=== PATIENT | male | born 1960 | race Caucasian/White ===

== ENCOUNTER 2018-05-26 19:40 | Emergency (ER) | payer OTHER, SELFPAY ==
[2018-05-26 19:42] VITALS: BP 170/97; PULSE 84; RESP 18; TEMP 36.7; O2SAT 98; BMI 45.4
--- NOTE | 2018-05-26 20:22 | ED.VISSUMM ---
- ER Visit Summary Date of Service: 05/26/18 Chief Complaint: Left knee injury History of Present Illness: The patient is a 57 M presenting with left knee pain. Patient was at work and he tripped and fell landing directly on his left knee. He did not hit his head or lose consciousness. His tetanus is up-to-date. He has an abrasion to the right lower extremity and pain of the left knee diffusely. Denies other injuries. Physical Examination: Vitals are stable. Patient is afebrile. Alert no acute distress. HEENT exam is unremarkable. Neck is nontender Lungs are clear and equal bilaterally. Heart is regular rate and rhythm. Extremities right lower extremity abrasion, left knee anterior tenderness with painful range of motion. Normal distal pulses. Skin is warm and dry. No focal neurologic deficit. Remainder of exam is unremarkable. Emergency Department Course and Treatment: Right lower extremity abrasion was cleaned and dressed. Left knee x-ray shows no acute fracture or dislocation. Multicompartment degenerative changes. He already has crutches. He is advised to follow-up with corporate care. He is given a short course of [place]. Advised to return to the ED for worsening complaints. Disposition: Discharge home Impression: Left knee contusion This note was generated with [employer] dictation software. It may contain incorrect words, spelling, and punctuation that were not noted in review of the chart prior to signing ED Disposition - Plan for ED Patient: Chief Complaint: Lower Extremity Injury Referrals: NOT,DEFINED [NON-STAFF] -
--- NOTE | 2018-05-26 21:08 | ED.DEP ---
ED Disposition - Plan for ED Patient: Chief Complaint: Lower Extremity Injury Instructions: ED Contusion Lower Ext Prescriptions: Hydrocodone Bitart/Apap 5-325 [[place] 5MG-325MG] 1 tablet PO Q4H PRN PRN 2 Days #10 tablet PRN Reason: Pain Referrals: NOT,DEFINED [NON-STAFF] - [facility] [GROUP OF PHYSICIANS] -
== END 2018-05-26 21:30 | disposition home or self-care (01) ==
LOC: ED 20:42
PROVIDERS: Emergency Provider Emergency Medicine
DX: S80.02XA Contusion of left knee, initial encounter (principal); S80.811A Abrasion, right lower leg, initial encounter; W01.0XXA Fall on same level from slipping, tripping and stumbling without subsequent striking against object, initial encounter; Y93.9 Activity, unspecified; Y92.9 Unspecified place or not applicable; E11.9 Type 2 diabetes mellitus without complications; E78.00 Pure hypercholesterolemia, unspecified; Z79.4 Long term (current) use of insulin; Z79.84 Long term (current) use of oral hypoglycemic drugs; Z79.899 Other long term (current) drug therapy
CPT/HCPCS: 73564; 99283

== ENCOUNTER → 2019-02-23 | Outpatient (CLI) | payer BC, SELFPAY ==
--- NOTE | 2019-02-23 09:56 | CDU_ITS ---
Reason For Study: Carotid Stenosis Rt. Velocities/BP Lt. Velocities/BP Prox CCA 109/13 cm/sec. Prox CCA 120/14 cm/sec. Mid CCA 79/14 cm/sec. Mid CCA 97/19 cm/sec. Dist CCA 75/17 cm/sec. Dist CCA 72/18 cm/sec. Prox ICA 48/9 cm/sec. Prox ICA 61/14 cm/sec. Mid ICA 75/21 cm/sec. Mid ICA 63/16 cm/sec. Dist ICA 97/29 cm/sec. Dist ICA 92/26 cm/sec. Rt. ICA/CCA = 1.2. Lt. ICA/CCA = 1.0. Prox ECA 115/16 cm/sec. Prox ECA 175/23 cm/sec. Rt. Vert. 42/8 cm/sec. Lt. Vert. 44/11 cm/sec. Right Extracranial There is intimal thickening but no significant atherosclerotic plaque noted in the right common carotid artery. There is heterogeneous, irregular atherosclerotic plaque noted in the right internal carotid artery. There is intimal thickening but no significant atherosclerotic plaque noted in the right external carotid artery. Antegrade flow is noted in the right vertebral artery. Left Extracranial There is heterogeneous, irregular atherosclerotic plaque noted in the left common carotid artery. There is heterogeneous, irregular atherosclerotic plaque noted in the left internal carotid artery. There is heterogeneous, irregular atherosclerotic plaque noted in the left external carotid artery. Antegrade flow is noted in the left vertebral artery. Procedure Carotid Duplex [id number]. Exam performed in department. Interpretation Summary Minimal plague at the proximal right internal carotid with <50% stenosis. <50% stenosis right external carotid Irregular calcific plague at the proximal left internal carotid with <50% stenosis. Irregular plague at the proximal left external carotid with <50% stenosis. Patent and antegrade vertebrals bilaterally Ordering Physician: Bhupendra Lake Referring Physician: Dallas Hernandez Performed By: Marilu Middleton, CARLA, RVT
== END | disposition home or self-care (01) ==
LOC: CVS 09:54
PROVIDERS: Referring Provider Ophthalmology; Visit Provider Ophthalmology
DX: I65.29 Occlusion and stenosis of unspecified carotid artery (principal)
CPT/HCPCS: 93880

== ENCOUNTER → 2021-01-16 | Outpatient (CLI) | payer BC, SELFPAY ==
--- NOTE | 2021-01-16 | BON_PTH ---
PATIENT: BIN BELLAMY LOC: [facility] U#:[id number] AGE/SX: 60/M ROOM: RE01/16/[address]: EDWINA StylesM : 1960 BED: DIS: 01/16/2021 SPEC #: [id number] RECD: 01/16/21 17:40 STATUS: MILANA REQ #: [id number] STEVE: 01/16/21 00:[address]: Maricruz Loyola DEPT: SURGICAL PATHOLOGY RECD BY: Bay Galvez ENTERED: 01/17/21 07:45 SP TYPE: Bone OTHR DR: Out of [facility] Doctor Tissues: Bone of foot, NOS Procedures: Decalcification bone/plaque Surgery Specimen Level V HEADER OPERATION: Not noted PRE-OP DIAGNOSIS: Osteomyelitis, ulcer TISSUE SUBMITTED: Bone distal phalanx left hallux, biopsy MICROSCOPIC DIAGNOSIS Left hallux bone, biopsy: Fibrinoid material with acute inflammation and minute fragments of bone. See comment. AM:kathryn 01/18/2021 COMMENT The findings are consistent with acute osteomyelitis. Clinical correlation is suggested. MICROSCOPIC DESCRIPTION Slides are reviewed. GROSS DESCRIPTION Received in fixative is one container labeled with the patient's name and designated left first toe. The specimen consists of two irregular fragments of ortega soft tissue that in aggregate measure 0.5 x 0.2 x 0.1 cm. The specimen is totally submitted in one cassette after light decalcification. / SJ:kathryn 01/17/21 TC:2 CPT: 11576, 40220
[2021-01-16 19:58] LABS: M R Staph aureus DNA By PCR Negative (Negative); Probe Check PASS; Specimen Processing Control PASS; Staph aureus DNA By PCR POSITIVE (Negative)
== END | disposition home or self-care (01) ==
PROVIDERS: Referring Provider Podiatrist Foot & Ankle Surgery; Visit Provider Podiatrist Foot & Ankle Surgery
DX: L03.039 Cellulitis of unspecified toe (principal); L02.619 Cutaneous abscess of unspecified foot
CPT/HCPCS: 87070; 87077; 87186; 87205; 87640; 88304; 88307; 88311

== ENCOUNTER → 2021-02-12 14:55 | Outpatient (CLI) | payer BC, SELFPAY ==
--- NOTE | 2021-02-12 14:57 | ART_ITS ---
Reason For Study: PVD Procedure A bilateral lower extremity continuous wave Doppler with analog waveform analysis,segmental pressures,and ankle brachial indexes without exercise. Left Segmental Pressures Left brachial= 157mmHg. Left posterior tibial artery = >254mmHg. Left dorsalis pedis artery = >254mmHg. Left digit = 114 mmHg. The left dorsalis pedis waveforms are triphasic. The left posterior tibial artery waveforms are triphasic. Right Segmental Pressures Right brachial= 154mmHg. Right posterior tibial artery = >254mmHg. Right dorsalis pedis artery = >254mmHg. Right digit = 137 mmHg. The right dorsalis pedis waveforms are triphasic. The right posterior tibial artery waveforms are triphasic. Indices The right ankle brachial index by the dorsalis pedis is NC. The right ankle brachial index by the posterior tibial artery is NC. The right digital-brachial index is 0.87. The left ankle brachial index by the dorsalis pedis is NC. The left ankle brachial index by the posterior tibial artery is NC. The left digital-brachial index is 0.73. VL/Lower Ext Art Exam w/o Exercis Interpretation Summary Triphasic Doppler waveforms are noted at ankle level bilaterally. Pulse-volume recordings appear satisfactory at all levels bilaterally, including low-thigh, calf, ankle, and d igital levels. Resting ankle-brachial indices could not be determined on either side due to th e non-compressibility of the vasculature at ankle level. Digital-brachial indices are normal bilatera lly. There is evidence of arterial calcification at ankle level bilaterally. There i s no evidence of significant arterial occlusive disease in the lower extremities bilaterally. Ordering Physician: Maricruz Loyola Performed By: Jada Mota RVT
== END ==
PROVIDERS: Referring Provider Podiatrist Foot & Ankle Surgery; Visit Provider Podiatrist Foot & Ankle Surgery
DX: E11.621 Type 2 diabetes mellitus with foot ulcer (principal); L97.524 Non-pressure chronic ulcer of other part of left foot with necrosis of bone; I73.9 Peripheral vascular disease, unspecified; E11.42 Type 2 diabetes mellitus with diabetic polyneuropathy
CPT/HCPCS: 93923

== ENCOUNTER → 2023-04-02 | Outpatient (CLI) | payer BC, SELFPAY ==
--- NOTE | 2023-04-02 08:10 | CR.HP_ITS ---
CR - History & Physical General Arrival date:: 04/02/23 Arrival time:: 08:10 Date of Referral:: 03/09/23 Date of CR Evaluation:: 04/02/23 Referring Physician: Dr. Shalom Pardo History of Present Cardiac Event Onset Date Coronary Artery Bypass Graft:: Yes Vessel: 02/24/2023 lucio-lad, svg-PDA Medications Ambulatory Orders Medication Instructions Recorded hydrocodone-acetaminophen 5-325mg 1 tab PO Q4H PRN PRN Pain 2 days 05/26/18 5mg-325mg #10 TABLETS insulin glargine U-300 conc 300 300 unit SQ BID 05/26/18 unit/mL (1.5 mL) subcutaneous pen (TouESILLAGEo SoloStar U-300 Insulin) metformin 1,000 mg tablet 1,000 mg PO BID 05/26/18 rosuvastatin 20 mg tablet (Crestor) 20 mg PO QHS 05/26/18 cyclobenzaprine 10 mg tablet 10 mg PO TID PRN muscle spasm #30 01/10/21 tabs aspirin 81 mg chewable tablet 2 tab PO DAILY 03/25/23 cholecalciferol (vitamin D3) 125 125 mcg PO DAILY 03/25/23 mcg (5,000 unit) capsule coenzyme Q10 200 mg capsule (Co 200 mg PO DAILY 03/25/23 Q-10) dulaglutide 1.5 mg/0.5 mL 3 mg subcut QWEEK 03/25/23 subcutaneous pen injector (Trulicity) empagliflozin 25 mg tablet 25 mg PO DAILY 03/25/23 (Jardiance) furosemide 20 mg tablet 20 mg PO DAILY 03/25/23 gabapentin 300 mg capsule 300 mg PO BID 03/25/23 magnesium oxide 400 mg (241.3 mg 400 mg PO DAILY 03/25/23 magnesium) tablet metoprolol tartrate 50 mg tablet 50 mg PO BID 03/25/23 potassium chloride 10 mEq 10 meq PO DAILY 03/25/23 tablet,extended release Allergies Allergies No Known Allergies Allergy (Verified 03/25/23 07:21) Sleep Disorder Evaluation Hx of Sleep Apnea: Yes Do you snore loudly (louder than talking or can be heard through closed doors)?: Yes Do you often feel tired/ fatigued/ sleepy during daytime?: Yes Has anyone observed you stop breathing during sleep?: Yes History of Hypertension (for STOP score): Yes (Pt has sleep study scheduled) STOP Results: Positive Advanced Directives Advanced Directives Power of Personal Care Service Provider: No Living Will: No Advance Directives Information Provided: No Advance Directives on File: No Past Medical History Covid-19 Screening Physicial Symptoms Other Clinical Concerns Exposure Risk Pertinent Comorbidities Has a serious heart condition:: Yes Severely obese (Body Mass Index of 40 or higher):: Yes Past Medical Illness Past Medical History (Updated 03/25/23 @ 07:[address] Rj Garcia MD) Arthritis M19.90 CAD (coronary artery disease) I25.10 CABG 01/2023 Diabetes E11.9 Heart disease I51.9 High blood pressure I10 Knee pain M25.569 neck/back pain Family History Summary Family History (Updated 01/10/21 @ 17:48 by Carolyn Morrell) Other Diabetes Heart disease Hypertension Social History Smoking History Smoking Status: Never smoker Alcohol Use Alcohol Usage: No Occupation Occupation (List type of work in comments):: Employed Hours worked per day:: 9 Hobbies, Recreation, Social Activities Hobbies: Other Recreational Activities: I am able to engage in all my recreational activities Social Environment Status Marital Status: Current Living Arrangements Living Environment:: Spouse Children How many children do you have?: 2 Do any of your children live nearby?: Yes Safety Do you feel safe in your surroundings?: Yes Assistance Do you need any assistance at home?: no Review of Systems Review of Systems Hints Review of Present Symptoms: Reports Shortness of Breath with Exertion, PVD, Operative Discomfort, Fatigue, Heart Arrhythmia/Irregularities and Appetite - Special Diet; Denies Shortness of Breath at Rest, Angina, Wound Healing, Dizziness/Lightheadedness, Appetite - Normal, Sleep - Normal or Sexual Changes Pain Pain Location: chest (incisional) Pain Level: 2/10 Risk Factor Assessment Vital Signs Pulse Ox: 99 Pulse Pulse Rate: 85 Hypertension Blood Pressure Sitting - Left Arm: 110/70 Stress Stress: Work-related Diabetes Diabetic History: Type II Nutrition Referral for Diabetes: No Obesity Height: 5 ft 11 in Weight:: 345 lb Weight in Pounds: 345.0 lbs Body Mass Index (BMI): 48.1 Physical Inactivity Physical Inactivity: None Risk Stratification Risk Guidelines: Lowest Risk: Risk Factor for Smoking, Moderate Risk: Risk Factor for Dyslipidemia and Risk Factor for Depression and Highest Risk: Risk Factor for Diabetes, Risk Factor for Obesity, Risk Factor for Hypertension and Risk Factor for Sedentary Lifestyle For Smoking Smoking Risk Guidelines For Dyslipidemia Dyslipidemia Risk Guidelines For Diabetes Mellitus Diabetes Risk Guidelines For Obesity/Overweight Obesity/Overweight Risk Guidelines For Hypertension Hypertension Risk Guidelines For Sedentary Lifestyle Sedentary Lifestyle Risk Guidelines For Depression Depression Risk Guidelines Family History Family History (Updated 01/10/21 @ 17:48 by Carolyn Morrell) Other Diabetes Heart disease Hypertension Motivation Motivation to Participate On a scale of 1 to 10, how prepared are you to commit to attending program?: 3 What do you see as barriers to successfully being able to complete the program?: no What do you see as the benefits of succesfully completing the program? In other words, what do you hope to get out of participating in the program?: weight los s, endurance, strength, more energy Are there issues you are dealing with that will interfere with completing the program?: no Do you have a spouse or signficant other, family or friends who will help support you to complete the program?: yes
--- NOTE | 2023-04-02 08:36 | CR.ITP_ITS ---
Diagnosis General Information Admitting Diagnosis: S/P CABG Personal Learning Style:: Audio/Visual, Demonstration, Group, Individual Preference and Written Barriers to Learning: No Barriers Stage of change r/t lifestyle modifications:: Contemplation Gave educational material for:: Treating Heart Disease, How The Heart Works, What it means to have Heart Disease, How Coronary Artery Disease is Diagnosed, Heart Procedures, What Heart Medications Do, Risk Factors & Modifications, Living an Active Life, Nutrition, Emotions & Heart Disease, Stress Management & Relaxation and Sleep Disorders & Heart Disease Education/Goals Cardiac Rehabilitation Goals Personal Goals: Initial Assessment: Improve energy level, Get back to work, or to resume activities faster, Improve knowledge of cardiac disease, Improve muscle strength and endurance, Improve diet and eating habits (eat healthier) and Control risk factors (learn risk factor modification) Scale for measuring improvement of personal goals Diagnosis & Disease Process Outcomes/Goals: Pt IDs own risk factors & lifestyle modifications by Session 10, Verbalizes symptoms of angina & response by session 3., Pt independently manages and Other Additional Outcomes/Goals: Plan/Interventions: Assist Pt to ID & engage in lifestyle modification to reduce CVD risk, Instruct on individual risk factors, Review symptoms of angina & emergency actions, Review secondary diagnosis & identify educational needs. and Other see comment 30 day Reassessments:: Not Met 30 day Reassessments:: Not Met 30 day Reassessments:: Not Met 30 day Reassessments:: Not Met Final Reassessments:: Not Met Safety Referral to Physical Therapy: No Referral to [facility] Case Management: No Fall Risk Assessed:: Yes Assistive Devices:: None Exercise - Initial Assessment Visit Date of Eval: 04/02/23 (initial eval ) Mets: Pre-: >3 METS for 30 minutes by discharge, >5 METS for 30 minutes by discharge, >7 METS for 30 minutes by discharge and Unable to meet goal due to: (see comment below) Physician Prescribed Exercise Modalities: Treadmill, Airdyne, NuStep, SciFit and Lateral [place] Frequency: 3x/week for 12 weeks [36 sessions] Intensity: 60-80% of age predicted maximum heart rate reserve Current METSs:: 3 Target Heart Rate:: 95-111 Resting Blood Pressure: 110/70 Outcomes & Goals Goals:: Verbalizes understanding of THR, RPE & goal METS by session 6, Documents in home exercise log/reports 30 min aerobic 5 day/wk by DC, Demonstrates accurate pulse taking by DC and Other additional outcome/goals: see below Intervention & Plan Exercise Program Goals: Instruct on personal THR & RPE, Instruct on MET level & personal MET goal, Show patient to take own pulse /validate performance until accurate, Instruct on home exercise and Other additional plan/int Physical Activity Home Exercise Physical Activity - Home Exercise: Safe Exercise, Warm-up, Self-monitoring, Cool-Down, Home Exercise > 30 min Daily and Sitting Time <3 hours/daily Outcomes & Goals Outcomes/Goals: Demonstrates correct Warm-up/exercise Cool-Down (S3) if = 2.5 METs, Verbalizes symptoms of exercise intolerance by Session 3 (S3), Demonstrate safe equipment use (S3) & follows exercise prescrition (6) and Other: See below Intervention & Plan Plan/Intervention: Instruct warm-up & cool-down if exercising at > 2 METs, Instruct on symptoms of exercise intolerance & actions to take, Instruct & monitor on saf, Assess intial functional capacity & safety risk and Other See below Nutrition - Initial Assessment Visit Date of Eval: 04/02/23 (initial eval ) Cholesterol/Lipids (Other Core Measures) Determine presence & major risk factors that modify LDL goal: Hypertension or hypertensive medication, Low HDL cholesterol <40 mg/dL*, Family history of premature CHD in Male < 55 years: female <65 yearsFa and Age men > 45 years; women >/= 55 years Outcomes/Goals: Pt IDs own risk factors & lifestyle modifications by Session 10, Verbalizes symptoms of angina & response by session 3., Pt independently manages and Other Additional Outcomes/Goals: Intervention/Plan: Advocate for lipid panel cholesterol medication if applicable, Instruct on personal lipid levels & lipid goals/NCEP guidelines, Instruct on cholesterol and Other additional plan/int Diabetes (Other Core Measures) Diabetes Type: Diagnosis Type II ICD-10 E11 Insulin dependent injection/pump?: Yes Non-Insulin Dependent?: Yes Do you monitor your blood sugar at home?: Yes Referral to Diabetic Clinic:: No Outcomes/Goals:: Able to state symptoms of, Able to state, Able to state and Other additional Intervention/Plan:: Instruct on, Refer to, Instruct on and Other Weight Mgt (Other Care) Height: 5 ft 11 in Weight:: 345 lb BMI: 48.1 Diagnosis Overweight/Obesity BMI> 30% ICD-10 E66: Yes Diagnosis High BMI/Morbid Obesity BMI> 35% ICD-10 Z68: Yes Outcomes/Goals: Pt sets, maintains & shows weight loss goal & trend during rehab and Other additional outcomes/goals Intervention/Plan: Instruct on ideal BMI & set weight loss goal w/patient, Assist pt to ID & incorporate diet changes for weight loss by S9, Refer to Structured Weight Loss program as appropriate, Encourage goal of using 250- 300dcal per session for weight loss and Other additional plan/interventions Healthy Eating Habits Will attend diet classes:: Yes Outcomes/Goals:: Consume diet rich in vegs,fruits,whole grain/high fiber,fish,lean meat, Limit sat/trans fats,cholesterol & added salts & sugars and Other additional outcome/goals: Intervention/Plan:: Assess current eating habits and Other Additional plan/interventions Education Gave educational materials for:: Signs & symptoms of hypoglycemia, Signs & symptoms of hyperglycemia, Relate diabetes to coronary artery disease and Healthy eating Core - Initial Assessment Visit Date of Eval: 04/02/23 (initial eval ) Medication Compliance Preventative Medication(s):: Statin/lipid and Beta gabi H/O mental health issues: depression, anxiety, or addiction?: No Doesn?t believe in the benefits of treatment?: No Believes medications are unnecessary or harmful?: No Has a concern about medication side effects?: No Outcomes/Goals: Verbalizes medications,desired effect & common side effects @ DC , Pt self-reports following medication regimen, Keeps card in wallet w/medications listed by DC and Other additional outcome/goals: Interventions/plans: Instruct on medication effects & side effects, Review medication list w/patient every two weeks, Instruct importance of taking meds as ordered & assist problem solving and Other additional Tobacco Use Tobacco Use: Non-smoker Hypertension Hypertension Diagnosis:: Hypertension ICD-10 I10 [place] [employer] Hypertension Guidelines Outcomes/Goals: Able to verbalize/achieve optimal blood pressure <130/80, Incorporates diet changes & exercise for blood pressure control by DC and Other additional outcomes/goals Interventions/plan: Instruct on optimal blood pressure, hypertension & medications, Instruct on effects of sodium, alcohol, stress, exercise &hypertension and Other additional plan/interventions Tobacco Cessation Referral Smoking Cessation Referral:: No Individual Education/Counseling:: No Education Schedule Given:: Yes Psychosocial - Initial Assess VIsit Date of Eval: 04/02/23 (initial eval ) History of previous Mental disease:: No Target Goals Target Goals Patient Health Questionnaire PHQ-9 Screening Initial Assessment: 1. Little interest or pleasure in doing things: More than half the days 2. Feeling down, depressed, or hopeless: Several days 3. Trouble falling or staying asleep, or sleeping too much: More than half the days 4. Feeling tired or having little energy: More than half the days 5. Poor appetite or overeating: Several days 6. Feeling bad about yourself -- or that you are a failure or have let yourself or your family down: Several days 7. Trouble concentrating on things, such as reading the newspaper or watching television: Several days 8. Moving or speaking so slowly that other people could have noticed. Or the opposite - being so fidgety or restless that you have been moving around a lot more than usual: Several days 9. Thoughts that you would be better off , or of hurting yourself in some way: Not at all How difficult have these problems made it for you to do your work, take care of things at home, or get along with other people?: Somewhat difficult Total Score: 11 ANGELINA-Q SV Test Statements CAD is a disease of the arteries in the heart: False Examples of risk factors for heart disease: True Angina is chest pain or discomfort: True The benefits of resistance training include: True Eating more meat and dairy products: False Anti-platelet medications such as aspirin are important: I Don't Know The only effective way to manage stress: False An exercise warm-up slowly increases heart rate: True Prepared, processed foods usually have high sodium: True Depression is common after a heart attack: True The statin medications lower cholesterol: True To control blood pressure, lower the amount of sodium: True If someone gets chest discomfort during walking: False Transfats are partially hydrogenated vegetable oils: I Don't Know Sleep apnea that is not treated increases the risk: False To control cholesterol, one should become a vegetarian: False Someone knows if he/she is exercising at the right level: I Don't Know Diabetes cannot be prevented with exercise & health eating: False Stress is a large risk for heart attack: True A diet that can help lower blood pressure is rich in: True Total Score Total Correct Responses: 17 Self-Efficacy 6-Item Scale Initial Assessment: We would like to know how confident you are in doing certain activities. Please select your confidence level for: Fatigue Select Number: 2 Physical Discomfort or Pain Select Number: 3 Emotional Distress Select Number: 5 Other Symptoms or Health Problems Select Number: 5 Different Tasks and Activities Select Number: 4 Medication Select Number: 6 Total Score:: 4 Nutrition Survey Nutrition Survey Instructions Scoring Instructions Nutrition Survey Initial: Have you lost >10 lbs over the past 2 months without trying?: Yes Are you following a special diet at home for diabetes, low fat, or low salt?: Yes Are you interested in meeting with a dietitian for help understanding your diet?: No Do you eat less than 3 meals a day?: No Do you eat fatty meats (saeed, sausage, ribs, etc), fried foods, desserts, large amounts of salad dressings, margarine, butter, or cheese most days?: No Do you have food allergies? [Enter types in comment field]: No Do you eat in restaurants more than 3 times a week?: No Do you season food with salt, seasoning salt, or garlic salt?: No Do you used canned, boxed, frozen meals, or soups, seasoning packets?: No Total Score:: 2 Exercise - Final/Discharge Physician Prescribed Exercise Modalities: Treadmill, Airdyne, NuStep, SciFit and Lateral Regulatory Analyst Frequency: 3x/week for 12 weeks [36 sessions] Intensity: 60-80% of age predicted maximum heart rate reserve Current METSs:: 3 Target Heart Rate:: 95-111 Nutrition - 30-Day Assessment Weight Mgt (Other Care) Height: 5 ft 11 in Weight:: 345 lb BMI: 48.1 Nutrition - 60-Day Assessment Weight Mgt (Other Care) Height: 5 ft 11 in Weight:: 345 lb BMI: 48.1 Psychosocial - 30-Day Assess Target Goals Target Goals Psychosocial - 60-Day Assess Target Goals Target Goals Psychosocial - 90-Day Assess Target Goals Target Goals Psychosocial - Final Assessmen Target Goals Target Goals Nutrition - 90-Day Assessment Weight Mgt (Other Care) Height: 5 ft 11 in Weight:: 345 lb BMI: 48.1 Nutrition - Final Assessment Weight Mgt (Other Care) Height: 5 ft 11 in Weight:: 345 lb BMI: 48.1
[2023-04-02 08:50] VITALS: BMI 48.1
[2023-04-02 09:13] VITALS: BP 110/70; PULSE 85; O2SAT 99
[2023-04-02 09:51] VITALS: BMI 48.1
[2023-04-02 09:56] VITALS: BP 110/70
== END | disposition home or self-care (01) ==
DX: Z95.1 Presence of aortocoronary bypass graft (principal); E11.51 Type 2 diabetes mellitus with diabetic peripheral angiopathy without gangrene; I11.0 Hypertensive heart disease with heart failure; I73.9 Peripheral vascular disease, unspecified; G47.30 Sleep apnea, unspecified; R06.83 Snoring; R53.83 Other fatigue; E66.9 Obesity, unspecified; M19.90 Unspecified osteoarthritis, unspecified site; I25.10 Atherosclerotic heart disease of native coronary artery without angina pectoris; M25.569 Pain in unspecified knee; R06.02 Shortness of breath; G89.18 Other acute postprocedural pain; I49.9 Cardiac arrhythmia, unspecified

== ENCOUNTER → 2023-04-08 | Outpatient (CLI) | payer BC, SELFPAY ==
[2023-04-02 09:51] VITALS: BMI 48.1
== END | disposition home or self-care (01) ==
LOC: SL 20:38
PROVIDERS: Referring Provider Internal Medicine Critical Care Medicine; Visit Provider Internal Medicine Critical Care Medicine
DX: R06.00 Dyspnea, unspecified (principal); G47.10 Hypersomnia, unspecified; G47.30 Sleep apnea, unspecified
CPT/HCPCS: 95811

== ENCOUNTER → 2023-04-24 | Outpatient (CLI) | payer BC, SELFPAY ==
[2023-04-02 09:51] VITALS: BMI 48.1
--- NOTE | 2023-04-25 07:42 | PFT ---
INTRODUCTION: The patient is a 62-year-old male who presents for pulmonary function studies secondary to a diagnosis of dyspnea. Respiratory therapy reported good patient effort. Bronchodilators were used during testing. INTERPRETATION: Forced expiration spirometry demonstrates no evidence of a large airways obstructive ventilatory defect. There was no significant response to aerosolized bronchodilators. Spirograms are of good quality and plateau gradually indicating slow emptying of the lungs. Body plethysmography was performed and revealed a decreased TLC to 4.21 L, 57% of predicted, indicative of a severe restrictive ventilatory impairment. Diffusing capacity by single breath CO was within normal limits. IMPRESSION: Severe restrictive ventilatory impairment.
== END | disposition home or self-care (01) ==
LOC: PSN 13:03
PROVIDERS: Referring Provider Internal Medicine Critical Care Medicine; Visit Provider Internal Medicine Critical Care Medicine
DX: R06.00 Dyspnea, unspecified (principal)
CPT/HCPCS: 94060; 94726; 94729

== ENCOUNTER 2023-04-27 10:15 | Outpatient (RCR) | payer BC, SELFPAY ==
[2023-04-02 09:51] VITALS: BMI 48.1
== END 2023-04-27 23:59 ==
LOC: CR 10:15
DX: Z95.1 Presence of aortocoronary bypass graft (principal)
CPT/HCPCS: 93798

== ENCOUNTER → 2023-04-27 | Outpatient (CLI) | payer BC, SELFPAY ==
[2023-04-02 09:51] VITALS: BMI 48.1
[2023-04-27 11:48] VITALS: PULSE 71; PULSE 75; PULSE 78; PULSE 81; PULSE 85; PULSE 86; PULSE 89; PULSE 93; O2SAT 93; O2SAT 94; O2SAT 95
--- NOTE | 2023-04-28 05:49 | PCM.PSN.6M ---
PSN 6 Minute Walk Test 6 Minute Walk Test 6 Minute Walk Test: 6 Minute Walk Test PSN:6-Minute Walk Test Start: 04/27/23 11:47 Freq: Status: Active Protocol: [id number] Document 04/27/23 11:48 [place] (Rec: 04/27/23 11:49 [place] Desktop) 6 Minute Walk Test Date Performed 04/27/23 Time Performed 11:30 Height 5 ft 11 in Weight: 146.057 kg Weight in Pounds 322.[address]: Rj Garcia Assistive device used: None Pre-test Oxygen Delivery Method Room Air Pulse Ox 95 Pulse Rate (60-100) 71 Dyspnea Kat Scale (0-10) 0 Exertion Kat Scale (6-20) 6 1st minute Oxygen Delivery Method Room Air Pulse Ox 94 Pulse Rate (60-100) 78 2nd minute Oxygen Delivery Method Room Air Pulse Ox 93 Pulse Rate (60-100) 81 3rd minute Oxygen Delivery Method Room Air Pulse Ox 94 Pulse Rate (60-100) 85 4th minute Oxygen Delivery Method Room Air Pulse Ox 93 Pulse Rate (60-100) 86 5th minute Oxygen Delivery Method Room Air Pulse Ox 94 Pulse Rate (60-100) 89 6th minute Oxygen Delivery Method Room Air Pulse Ox 94 Pulse Rate (60-100) 93 Dyspnea Kat Scale (0-10) 3 Exertion Kat Scale (6-20) 13 Post-test Oxygen Delivery Method Room Air Pulse Ox 95 Pulse Rate (60-100) 75 Full Laps Walked 14 Partial Lap, Number of Tiles Walked 12 Total Distance Walked (ft) 838 Interpretation Interpretation: The patient was able to ambulate 838 feet over the course of 6 minutes on room air with no assistive devices or breaks. The patient experienced no significant desaturation with an oxygen roosevelt of 93% and no significant tachycardia. These findings are consistent with a musculoskeletal limitation exercise tolerance. Recommendations Recommendations: No supplemental oxygen is indicated at this time
== END | disposition home or self-care (01) ==
LOC: PSN 11:27
PROVIDERS: Referring Provider Internal Medicine Critical Care Medicine; Visit Provider Internal Medicine Critical Care Medicine
DX: R06.00 Dyspnea, unspecified (principal)
CPT/HCPCS: 94618

== ENCOUNTER 2023-05-27 10:15 | Outpatient (RCR) | payer BC, SELFPAY ==
[2023-04-02 09:51] VITALS: BMI 48.1
--- NOTE | 2023-05-04 08:18 | PCM.CR.ITP ---
Exercise - Initial Assessment Visit Session #:: 12 Nutrition - Initial Assessment Weight Mgt (Other Care) Height: 5 ft 11 in Weight:: 325 lb BMI: 45.3 Psychosocial - Initial Assess Target Goals Target Goals Referral to Behavioral Health PS - Interventions: Yes: Attend Stress Management Classes and No: Referral to Behavioral Health if PHQ-9 score >9:, No: Referral to [facility] and No: Referral to Physician if PHQ-9 if score is 5-9: Patient Health Questionnaire PHQ-9 Screening 30-Day Re-eval Assessment: 1. Little interest or pleasure in doing things: Several days 2. Feeling down, depressed, or hopeless: Not at all 3. Trouble falling or staying asleep, or sleeping too much: Several days 4. Feeling tired or having little energy: Several days 5. Poor appetite or overeating: Not at all 6. Feeling bad about yourself -- or that you are a failure or have let yourself or your family down: Not at all 7. Trouble concentrating on things, such as reading the newspaper or watching television: Not at all 8. Moving or speaking so slowly that other people could have noticed. Or the opposite - being so fidgety or restless that you have been moving around a lot more than usual: Not at all 9. Thoughts that you would be better off , or of hurting yourself in some way: Not at all How difficult have these problems made it for you to do your work, take care of things at home, or get along with other people?: Not difficult at all Total Score: 3 Self-Efficacy 6-Item Scale 30-Day Re-eval Assessment: We would like to know how confident you are in doing certain activities. Please select your confidence level for: Fatigue Select Number: 4 Physical Discomfort or Pain Select Number: 5 Emotional Distress Select Number: 7 Other Symptoms or Health Problems Select Number: 7 Different Tasks and Activities Medication Select Number: 8 Nutrition Survey Nutrition Survey Instructions Scoring Instructions Exercise - 30-day Assessment Visit Date of Eval: 05/04/23 Session #:: 12 Physician Prescribed Exercise Modalities: Treadmill, Airdyne and NuStep Frequency: 3x/week for 12 weeks [36 sessions] Intensity: 60-80% of age predicted maximum heart rate reserve Duration: 30 - 45 minutes Current METSs:: 3.5 Target Heart Rate:: 95-111 Current RPE:: 12-13 Maximum Excercise HR:: 97 Resting Blood Pressure: 128/74 Maximum Exercise Blood Pressure: 142/80 EKG Type: Sinus rhythm with rare PACs, PVCs Current Physical Activity or Exercising minutes: 38:44 Outcomes & Goals Goals:: Verbalizes understanding of THR, RPE & goal METS by session 6, Documents in home exercise log/reports 30 min aerobic 5 day/wk by DC and Demonstrates accurate pulse taking by DC Intervention & Plan Exercise Program Goals: Instruct on personal THR & RPE, Instruct on MET level & personal MET goal, Show patient to take own pulse /validate performance until accurate and Instruct on home exercise 30-day Reassessments 30 day Reassessments:: Met Physical Activity Home Exercise Physical Activity - Home Exercise: Safe Exercise, Warm-up, Self-monitoring, Cool-Down, Home Exercise > 30 min Daily and Sitting Time <3 hours/daily Outcomes & Goals Outcomes/Goals: Demonstrates correct Warm-up/exercise Cool-Down (S3) if = 2.5 METs, Verbalizes symptoms of exercise intolerance by Session 3 (S3) and Demonstrate safe equipment use (S3) & follows exercise prescrition (6) Intervention & Plan Plan/Intervention: Instruct warm-up & cool-down if exercising at > 2 METs, Instruct on symptoms of exercise intolerance & actions to take, Instruct & monitor on saf and Assess intial functional capacity & safety risk 30-day Reassessments 30 day Reassessments:: Met Nutrition - 30-Day Assessment Program Goals Nutrition Program Goals Patient has diagnosis of Hyperlipidemia (ICD E78)?: Yes Visit Date of Eval: 05/04/23 Session #:: 12 Cholesterol/Lipids (Other Core Measures) Determine presence & major risk factors that modify LDL goal: Hypertension or hypertensive medication and Age men > 45 years; women >/= 55 years Outcomes/Goals: Pt IDs own risk factors & lifestyle modifications by Session 10, Verbalizes symptoms of angina & response by session 3. and Pt independently manages Intervention/Plan: Instruct on personal lipid levels & lipid goals/NCEP guidelines and Instruct on cholesterol Referral to dietitian:: Yes 30-day Reassessments:: Progressing Diabetes (Other Core Measures) Diabetes Type: Diagnosis Type II ICD-10 E11 Fasting blood glucose:: 158 Insulin dependent injection/pump?: Yes Non-Insulin Dependent?: Yes Do you monitor your blood sugar at home?: Yes Referral to Diabetic Clinic:: Yes Outcomes/Goals:: Able to state symptoms of, Able to state and Able to state Intervention/Plan:: Instruct on, Refer to and Instruct on 30-day Reassessments:: Progressing Weight Mgt (Other Care) Height: 5 ft 11 in Weight:: 325 lb BMI: 45.3 Diagnosis Overweight/Obesity BMI> 30% ICD-10 E66: Yes Diagnosis High BMI/Morbid Obesity BMI> 35% ICD-10 Z68: Yes Outcomes/Goals: Pt sets, maintains & shows weight loss goal & trend during rehab Intervention/Plan: Instruct on ideal BMI & set weight loss goal w/patient, Assist pt to ID & incorporate diet changes for weight loss by S9, Refer to Structured Weight Loss program as appropriate and Encourage goal of using 250-300dcal per session for weight loss 30 day Reassessments:: Progressing Reassessment Notes & Comments:: down from 345! Healthy Eating Habits Will attend diet classes:: Yes Outcomes/Goals:: Consume diet rich in vegs,fruits,whole grain/high fiber,fish,lean meat and Limit sat/trans fats,cholesterol & added salts & sugars Intervention/Plan:: Assess current eating habits 30-day Reassessments:: Progressing Education Gave educational materials for:: Signs & symptoms of hypoglycemia, Signs & symptoms of hyperglycemia, Relate diabetes to coronary artery disease and Healthy eating Nutrition - 60-Day Assessment Weight Mgt (Other Care) Height: 5 ft 11 in Weight:: 325 lb BMI: 45.3 Core - 30-Day Assessment Visit Date of Eval: 05/04/23 Session #:: 12 Medication Compliance Preventative Medication(s):: Aspirin and Beta gabi H/O mental health issues: depression, anxiety, or addiction?: No Doesn?t believe in the benefits of treatment?: No Believes medications are unnecessary or harmful?: No Has a concern about medication side effects?: No Expresses concern over the cost of medications?: No Outcomes/Goals: Verbalizes medications,desired effect & common side effects @ DC, Pt self-reports following medication regimen and Keeps card in wallet w/medications listed by DC Interventions/plans: Instruct on medication effects & side effects, Review medication list w/patient every two weeks and Instruct importance of taking meds as ordered & assist problem solving 30-day Reassessments:: Met Tobacco Use Tobacco Use: Non-smoker Hypertension Hypertension Diagnosis:: Hypertension ICD-10 I10 Resting Blood Pressure:: 128/74 [place] [employer] Hypertension Guidelines Peak Exercise Blood Pressure:: 142/80 Outcomes/Goals: Able to verbalize/achieve optimal blood pressure <130/80 and Incorporates diet changes & exercise for blood pressure control by DC Interventions/plan: Instruct on optimal blood pressure, hypertension & medications and Instruct on effects of sodium, alcohol, stress, exercise &hypertension 30 day Reassessments:: Met Tobacco Cessation Referral Smoking Cessation Referral:: No Individual Education/Counseling:: No Psychosocial - 30-Day Assess VIsit Date of Eval: 05/04/23 Session #:: 12 Not Applicable: Yes History of previous Mental disease:: No Target Goals Target Goals Psychosocial Test Tool Used:: PHQ-9 Questionnaire phq-9 Severity Referral to Behavioral Health PS - Interventions: Yes: Attend Stress Management Classes and No: Referral to Behavioral Health if PHQ-9 score >9:, No: Referral to [facility] and No: Referral to Physician if PHQ-9 if score is 5-9: Outcomes/Goals: See list Psychosocial Outcomes/Goals:: ID's personal stressors & 2 strategies to manage stress by discharge Intervention/Plan: See List Interventions/Plan:: Assess stressors,coping strategies & signs of derpression on admission, Instruct/assist pt to develop coping & personal stress Mgt strategies, Instruct patient to recognize signs & symptoms of depression and Instruct patient to recog 30-day Reassessments: 30 day Reassessments:: Progressing Psychosocial - 60-Day Assess Target Goals Target Goals Referral to Behavioral Health PS - Interventions: Yes: Attend Stress Management Classes and No: Referral to Behavioral Health if PHQ-9 score >9:, No: Referral to [facility] and No: Referral to Physician if PHQ-9 if score is 5-9: Outcomes/Goals: See list Psychosocial Outcomes/Goals:: ID's personal stressors & 2 strategies to manage stress by discharge Psychosocial - 90-Day Assess Target Goals Target Goals Referral to Behavioral Health PS - Interventions: Yes: Attend Stress Management Classes and No: Referral to Behavioral Health if PHQ-9 score >9:, No: Referral to [facility] and No: Referral to Physician if PHQ-9 if score is 5-9: Psychosocial - Final Assessmen Target Goals Target Goals Referral to Behavioral Health PS - Interventions: Yes: Attend Stress Management Classes and No: Referral to Behavioral Health if PHQ-9 score >9:, No: Referral to [facility] and No: Referral to Physician if PHQ-9 if score is 5-9: Nutrition - 90-Day Assessment Weight Mgt (Other Care) Height: 5 ft 11 in Weight:: 325 lb BMI: 45.3 Nutrition - Final Assessment Weight Mgt (Other Care) Height: 5 ft 11 in Weight:: 325 lb BMI: 45.3
[2023-05-04 08:28] VITALS: BP 128/74; BMI 45.3
== END 2023-05-28 23:59 ==
LOC: CR 10:15
DX: Z95.1 Presence of aortocoronary bypass graft (principal)
CPT/HCPCS: 93798

== ENCOUNTER → 2023-06-05 | Outpatient (CLI) | payer BC, SELFPAY ==
[2023-05-04 08:28] VITALS: BMI 45.3
[2023-06-03 08:43] VITALS: BMI 44.4
--- NOTE | 2023-06-05 11:40 | CT_ITS ---
STUDY: CT CHEST WITHOUT CONTRAST REASON FOR EXAM: Male, 62 years old. Abnormal LLL RADIATION DOSAGE (If Supplied By Facility): CTDIvol = ( 19.63 ) mGy, DLP = ( 922.51 ) mGycm TECHNIQUE: Transaxial imaging was performed without the administration of intravenous contrast material. Multiplanar coronal and sagittal images were reformatted. Individualized dose optimization techniques were used for this CT. COMPARISON: No relevant priors. FINDINGS: CHEST Mild increased linear markings at the left lung base suggestive of scarring. Minimal degree of pleural thickening. Sternal cerclage wires and vascular clips are present from a prior sternotomy and coronary artery bypass graft procedure (CABG). There are calcifications of the coronary arteries. Mild degree of anterior pericardial thickening. Normal mediastinum. Normal hilar regions. Normal unenhanced pulmonary arteries. There is atherosclerotic calcification of the aortic arch with tortuosity and elongation of the aortic arch and descending thoracic aorta. There are multi-level degenerative changes of the thoracic spine. Small hiatal hernia. CT/Chest without Contrast IMPRESSION: Findings suggestive of a mild degree of scarring in the left lower lobe. Electronically Signed: Derik Zaragoza MD at 14:27 EDT ,
== END | disposition home or self-care (01) ==
PROVIDERS: Referring Provider Internal Medicine Critical Care Medicine; Visit Provider Internal Medicine Critical Care Medicine
DX: R06.00 Dyspnea, unspecified (principal)
CPT/HCPCS: 71250

== ENCOUNTER → 2023-06-23 | Outpatient (CLI) | payer BC, SELFPAY ==
[2023-04-02 09:51] VITALS: BMI 48.1
[2023-06-03 08:43] VITALS: BMI 44.4
== END | disposition home or self-care (01) ==
LOC: SL 21:47
PROVIDERS: Referring Provider Nurse Practitioner Acute Care; Visit Provider Internal Medicine Critical Care Medicine
DX: G47.30 Sleep apnea, unspecified (principal)
CPT/HCPCS: 95811

== ENCOUNTER 2023-06-26 10:15 | Outpatient (RCR) | payer BC, SELFPAY ==
[2023-05-04 08:28] VITALS: BMI 45.3
[2023-05-29 00:12] VITALS: BP 128/74
--- NOTE | 2023-06-03 08:36 | CR.ITP_ITS ---
Nutrition - Initial Assessment Weight Mgt (Other Care) Height: 5 ft 11 in Weight:: 319 lb BMI: 44.4 Psychosocial - Initial Assess Target Goals Target Goals Patient Health Questionnaire PHQ-9 Screening 60-Day Re-eval Assessment: 1. Little interest or pleasure in doing things: Several days 2. Feeling down, depressed, or hopeless: Not at all 3. Trouble falling or staying asleep, or sleeping too much: Several days 4. Feeling tired or having little energy: Several days 5. Poor appetite or overeating: Not at all 6. Feeling bad about yourself -- or that you are a failure or have let yourself or your family down: Not at all 7. Trouble concentrating on things, such as reading the newspaper or watching television: Not at all 8. Moving or speaking so slowly that other people could have noticed. Or the opposite - being so fidgety or restless that you have been moving around a lot more than usual: Not at all 9. Thoughts that you would be better off , or of hurting yourself in some way: Not at all How difficult have these problems made it for you to do your work, take care of things at home, or get along with other people?: Not difficult at all Total Score: 3 Self-Efficacy 6-Item Scale 60-Day Re-eval Assessment: We would like to know how confident you are in doing certain activities. Please select your confidence level for: Fatigue Select Number: 4 Physical Discomfort or Pain Select Number: 5 Emotional Distress Select Number: 7 Other Symptoms or Health Problems Select Number: 7 Different Tasks and Activities Select Number: 8 Medication Select Number: 8 Total Score:: 6 Nutrition Survey Nutrition Survey Instructions Scoring Instructions Exercise - 60-day Assessment Visit Date of Eval: 06/03/23 Session #:: 24 Physician Prescribed Exercise Modalities: Treadmill, Airdyne and NuStep Frequency: 3x/week for 12 weeks [36 sessions] Intensity: 60-80% of age predicted maximum heart rate reserve Duration: 30 - 45 minutes Current METSs:: 3.5 Target Heart Rate:: 95-111 Current RPE:: 13-14 Maximum Excercise HR:: 109 Resting Blood Pressure: 104/78 Maximum Exercise Blood Pressure: 134/80 EKG Type: SR to ST with rare PVC Outcomes & Goals Goals:: Verbalizes understanding of THR, RPE & goal METS by session 6, Documents in home exercise log/reports 30 min aerobic 5 day/wk by DC, Demonstrates accurate pulse taking by DC and Other additional outcome/goals: see below Intervention & Plan Exercise Program Goals: Instruct on personal THR & RPE, Instruct on MET level & personal MET goal, Show patient to take own pulse /validate performance until accurate, Instruct on home exercise and Other additional plan/int 30-day Reassessments 30 day Reassessments:: Met Physical Activity Home Exercise Physical Activity - Home Exercise: Safe Exercise, Warm-up, Self-monitoring, Cool-Down, Home Exercise > 30 min Daily and Sitting Time <3 hours/daily Outcomes & Goals Outcomes/Goals: Demonstrates correct Warm-up/exercise Cool-Down (S3) if = 2.5 METs, Verbalizes symptoms of exercise intolerance by Session 3 (S3), Demonstrate safe equipment use (S3) & follows exercise prescrition (6) and Other: See below Intervention & Plan Plan/Intervention: Instruct warm-up & cool-down if exercising at > 2 METs, Instruct on symptoms of exercise intolerance & actions to take, Instruct & monitor on saf, Assess intial functional capacity & safety risk and Other See below 30-day Reassessments 30 day Reassessments:: Met Nutrition - 30-Day Assessment Weight Mgt (Other Care) Height: 5 ft 11 in Weight:: 319 lb BMI: 44.4 Nutrition - 60-Day Assessment Program Goals Nutrition Program Goals Patient has diagnosis of Hyperlipidemia (ICD E78)?: Yes Visit Date of Eval: 06/03/23 Session #:: 24 Cholesterol/Lipids (Other Core Measures) Determine presence & major risk factors that modify LDL goal: Hypertension or hypertensive medication, Low HDL cholesterol <40 mg/dL*, Family history of premature CHD in Male < 55 years: female <65 yearsFa and Age men > 45 years; women >/= 55 years Outcomes/Goals: Pt IDs own risk factors & lifestyle modifications by Session 10, Verbalizes symptoms of angina & response by session 3., Pt independently manages and Other Additional Outcomes/Goals: Referral to dietitian:: Yes 30-day Reassessments:: Progressing Diabetes (Other Core Measures) Diabetes Type: Diagnosis Type II ICD-10 E11 Insulin dependent injection/pump?: Yes Non-Insulin Dependent?: Yes Do you monitor your blood sugar at home?: Yes Referral to Diabetic Clinic:: Yes Outcomes/Goals:: Able to state symptoms of, Able to state, Able to state and Other additional Intervention/Plan:: Instruct on, Refer to, Instruct on and Other 30-day Reassessments:: Progressing Weight Mgt (Other Care) Height: 5 ft 11 in Weight:: 319 lb BMI: 44.4 Diagnosis Overweight/Obesity BMI> 30% ICD-10 E66: Yes Diagnosis High BMI/Morbid Obesity BMI> 35% ICD-10 Z68: Yes Outcomes/Goals: Pt sets, maintains & shows weight loss goal & trend during rehab and Other additional outcomes/goals Intervention/Plan: Instruct on ideal BMI & set weight loss goal w/patient, Assist pt to ID & incorporate diet changes for weight loss by S9, Refer to Structured Weight Loss program as appropriate, Encourage goal of using 250- 300dcal per session for weight loss and Other additional plan/interventions 30 day Reassessments:: Progressing Healthy Eating Habits Will attend diet classes:: Yes Outcomes/Goals:: Consume diet rich in vegs,fruits,whole grain/high fiber,fish,lean meat, Limit sat/trans fats,cholesterol & added salts & sugars and Other additional outcome/goals: Intervention/Plan:: Assess current eating habits and Other Additional plan/interventions 30-day Reassessments:: Progressing Education Gave educational materials for:: Signs & symptoms of hypoglycemia, Signs & symptoms of hyperglycemia, Relate diabetes to coronary artery disease and Healthy eating Core - 60-Day Assessment Visit Date of Eval: 06/03/23 Session #:: 24 Medication Compliance Preventative Medication(s):: Aspirin and Beta gabi H/O mental health issues: depression, anxiety, or addiction?: No Doesn?t believe in the benefits of treatment?: No Believes medications are unnecessary or harmful?: No Has a concern about medication side effects?: No Expresses concern over the cost of medications?: No Outcomes/Goals: Verbalizes medications,desired effect & common side effects @ DC, Pt self-reports following medication regimen, Keeps card in wallet w/medications listed by DC and Other additional outcome/goals: Interventions/plans: Instruct on medication effects & side effects, Review medication list w/patient every two weeks, Instruct importance of taking meds as ordered & assist problem solving and Other additional 30-day Reassessments:: Met Tobacco Use Tobacco Use: Non-smoker Hypertension Hypertension Diagnosis:: Hypertension ICD-10 I10 Resting Blood Pressure:: 104/78 [place] [employer] Hypertension Guidelines Peak Exercise Blood Pressure:: 134/80 Outcomes/Goals: Able to verbalize/achieve optimal blood pressure <130/80, Incorporates diet changes & exercise for blood pressure control by DC and Other additional outcomes/goals Interventions/plan: Instruct on optimal blood pressure, hypertension & medications, Instruct on effects of sodium, alcohol, stress, exercise &hypertension and Other additional plan/interventions 30 day Reassessments:: Met Tobacco Cessation Referral Smoking Cessation Referral:: No Individual Education/Counseling:: No Education Schedule Given:: Yes Psychosocial - 30-Day Assess Target Goals Target Goals Outcomes/Goals: See list Psychosocial Outcomes/Goals:: ID's personal stressors & 2 strategies to manage stress by discharge and Other Additional outcome/goals: Psychosocial - 60-Day Assess VIsit Date of Eval: 06/03/23 Session #:: 24 History of previous Mental disease:: No Target Goals Target Goals Outcomes/Goals: See list Psychosocial Outcomes/Goals:: ID's personal stressors & 2 strategies to manage stress by discharge and Other Additional outcome/goals: Intervention/Plan: See List Interventions/Plan:: Assess stressors,coping strategies & signs of derpression on admission, Instruct/assist pt to develop coping & personal stress Mgt strategies, Refer to Behavioral Health if appropriate, Refer to Physician if appropriate, Instruct patient to recognize signs & symptoms of depression, Instruct patient to recog and Other additional plan/intervention 30-day Reassessments: 30 day Reassessments:: Met Psychosocial - 90-Day Assess Target Goals Target Goals Psychosocial - Final Assessmen Target Goals Target Goals Nutrition - 90-Day Assessment Weight Mgt (Other Care) Height: 5 ft 11 in Weight:: 319 lb BMI: 44.4 Nutrition - Final Assessment Weight Mgt (Other Care) Height: 5 ft 11 in Weight:: 319 lb BMI: 44.4
[2023-06-03 08:43] VITALS: BP 104/78; BMI 44.4
== END 2023-06-27 23:59 ==
LOC: CR 10:15
DX: Z95.1 Presence of aortocoronary bypass graft (principal)
CPT/HCPCS: 93798

== ENCOUNTER 2023-07-01 10:15 | Outpatient (RCR) | payer BC, SELFPAY ==
[2023-06-03 08:43] VITALS: BMI 44.4
[2023-06-28 00:13] VITALS: BP 104/78; BP 128/74
== END 2023-07-28 23:59 ==
LOC: CR 10:15
DX: Z95.1 Presence of aortocoronary bypass graft (principal)
CPT/HCPCS: 93798

== ENCOUNTER 2023-08-12 08:52 | Day surgery (SDC) | payer BC, SELFPAY ==
[2023-06-03 08:43] VITALS: BMI 44.4
--- NOTE | 2023-08-12 09:08 | PCM.HP.STD ---
[facility] - General General Date of Admission: 08/12/23 Date of Service: 08/12/23 Chief Complaint: Surveillance colonoscopy [facility] Narrative BIN BELLAMY, is a 63 M who presents today for surveillance colonoscopy. He had a colonoscopy 6 years ago. He had 1 polyp during that colonoscopy that was seen and removed. It was adenoma. He had a significant amount of sigmoid diverticular disease that were also seen during colonoscopy. He is not having problems with his bowels. He carries a past medical history of obstructive sleep apnea, coronary artery disease status post CABG in 02/25/2023. He has taken aspirin 81 on daily basis. He also takes metformin and Trulicity for diabetes. Overall he is in very good health and not having any complaints at this time. FORMERLY [facility], [facility] Medical History (Updated 08/10/23 @ 13:58 by Zeynep Cross) Anxiety Arthritis Atherosclerosis of coronary artery of [place] heart without angina pectoris Back pain BiPAP (biphasic positive airway pressure) dependence Cardiology follow-up encounter Dietary restriction Easy bruising Essential hypertension Heart disease High cholesterol History of echocardiogram History of edema History of stress test Hx of colonic polyp Insulin dependent diabetes mellitus neck/back pain Non-smoker Shortness of breath on exertion Tooth abscess Home Medications metformin 1,000 mg tablet 1,000 mg PO BID 05/26/18 [History Last Taken 05/26/18] rosuvastatin 20 mg tablet (Crestor) 20 mg PO QHS 05/26/18 [History Last Taken 05/26/18] cholecalciferol (vitamin D3) 125 mcg (5,000 unit) capsule 125 mcg PO DAILY 03/25/23 [History Last Taken Unknown] coenzyme Q10 200 mg capsule (Co Q-10) 200 mg PO DAILY 03/25/23 [History Last Taken Unknown] empagliflozin 25 mg tablet (Jardiance) 25 mg PO DAILY 03/25/23 [History Last Taken Unknown] furosemide 20 mg tablet 20 mg PO DAILY 03/25/23 [History Last Taken Unknown] metoprolol tartrate 50 mg tablet 50 mg PO BID 03/25/23 [History Last Taken Unknown] acetaminophen 500 mg tablet 1,000 mg PO Q6H PRN pain 04/20/23 [History Last Taken Unknown] dulaglutide 3 mg/0.5 mL subcutaneous pen injector (Trulicity) 3 mg subcut HAWKINS 04/20/23 [History Last Taken Unknown] insulin glargine U-300 conc 300 unit/mL (3 mL) subcutaneous pen (Toujeo Max U-300 SoloStar) 80 unit subcut QHS 04/20/23 [History Last Taken Unknown] insulin lispro 100 unit/mL subcutaneous pen (Humalog KwikPen (U-100) Insulin) 1 - 15 unit subcut TID 04/20/23 [History Last Taken Unknown] aspirin 81 mg chewable tablet 1 tab PO DAILY 04/22/23 [History Last Taken Unknown] gabapentin 300 mg capsule 600 mg PO TID PRN pain (scale score 7-10) 04/22/23 [History Last Taken Unknown] amoxicillin 500 mg capsule 500 mg PO .COMPLEX #4 caps 06/22/23 [Rx Last Taken Unknown] melatonin 5 mg capsule 5 mg PO QHS PRN PRN sleep 08/10/23 [History Last Taken Unknown] Allergy/AdvReac Type Severity Reaction Status Date / Time No Known Allergies Allergy Verified 08/10/23 13:40 Family History Grandfather Heart disease Father Congestive heart failure (CHF) Brother CAD (coronary artery disease) Other Diabetes Hypertension Surgical History (Updated 08/10/23 @ 13:58 by Zeynep Cross) History of coronary artery bypass surgery (02/25/23) History of coronary artery stent placement History of left heart catheterization (02/20/23) Hx of colonoscopy Hx of total knee arthroplasty Social History (Updated 07/10/23 @ 11:15 by Pattie Nguyen) household members: spouse current occupational status: employed Smoking Status: Never smoker second hand exposure: Yes alcohol intake: former substance use type: does not use caffeine: Yes ROS Review of Systems ROS Unobtainable: other Constitutional Constitutional: Denies fatigue, fever(s), poor appetite, weight gain or weight loss ENT HEENT: Denies mouth lesions Cardiovascular Cardiovascular: Denies abdominal bloating, abdominal edema or abdominal pain Respiratory/Chest Respiratory/Chest: Denies change in mental status, change in phlegm color, chest congestion or chest tightness Gastrointestinal Gastrointestinal: Denies belching, bloating, change in bowel habits, change in stool character, chewing difficulty, coffee ground emesis, constipation, cramping, diarrhea, dyspepsia, dysphagia, early satiety, excessive flatus, fecal incontinence, heartburn, hematemesis, hematochezia, hemorrhoids, loose stools, melena, nausea, odynophagia, rectal bleeding, tenesmus, vomiting or weight changes Genitourinary Genitourinary: Denies abdominal discomfort, burning urination or itching Musculoskeletal Musculoskeletal: Reports as per HPI; Denies muscle weakness or myalgias Integumentary Integumentary: Denies jaundice Neurologic Neurologic: Denies lack of coordination or weakness Psychiatric Psychiatric: Denies confusion, depression, memory loss, mood swings, paranoia or suicidal ideation Endocrine Endocrinology: Denies systems reviewed and no addt'l complaints, except as documented Hematologic/Lymphatic Hematologic/Lymphatic: Denies anemia, easy bleeding, easy bruising or lymphadenopathy Allergic/Immunologic Allergic/Immunologic: Denies systems reviewed and no addt'l complaints, except as documented Physical Exam Const alert General Appearance: cooperative Orientation / Consciousness: oriented to person HEENT hearing grossly normal bilaterally Head and Scalp: normal to inspection Face and Sinus: face symmetric Nose: external nose normal Mouth: oral and palatal mucosa normal Eyes conjunctivae normal General Eye: normal appearance of both eyes Neck full ROM General: normal visual inspection Lymph Lymphatic: no lymphadenopathy noted Chest inspection of chest normal and palpation of chest normal Chest: symmetrical chest wall rise Resp normal respiratory effort Effort and Inspection: able to speak in complete sentences Cardio regular rate GI non-distended Percussion: normal to percussion Rectal Exam: deferred Neuro Speech: speech normal Gait (Neuro): normal gait Assessment & Plan Assessment/Plan (1) Encounter for screening for malignant neoplasm of colon: PLAN: He will undergo surveillance colonoscopy. He was explained alternatives, risk, benefits including not withstanding bleeding, infection, sepsis, perforation, need for emergent surgery . He will have an ASA of 3.
[2023-08-12] MEDS: Lactated Ringers 1,000 ML 15 ML IV (09:20)
[2023-08-12 09:22] VITALS: BP 139/82; PULSE 83; RESP 18; TEMP 36.2; O2SAT 97; BMI 40.2
[2023-08-12 09:52] LABS: Bedside Glucose 90 mg/dL (74-106)
--- NOTE | 2023-08-12 10:31 | OP.COLON_ITS ---
Patient Name: Chapo Hernández Procedure Date: 08/12/2023 10:04 AM Date of : 1960 Age: 63 Procedure: Colonoscopy Indications: Screening for colorectal malignant neoplasm Providers: Goldy Raya DO Referring MD: Goldy Raya DO Medicines: Monitored Anesthesia Care Patient Profile: This is a 63 year old male. Refer to note in patient chart for documentation of history and physical. Last Colonoscopy: several years ago. Complications: No immediate complications. Procedure: Pre-Anesthesia Assessment: - Prior to the procedure, a History and Physical was performed, and patient medications and allergies were reviewed. The patient is competent. The risks and benefits of the procedure and the sedation options and risks were discussed with the patient. All questions were answered and informed consent was obtained. Patient identification and proposed procedure were verified by the physician in the pre-procedure area. Mental Status Examination: normal. Respiratory Examination: clear to auscultation. CV Examination: normal. Prophylactic Antibiotics: The patient does not require prophylactic antibiotics. Prior Anticoagulants: The patient has taken no anticoagulant or antiplatelet agents. ASA Grade Assessment: II - A patient with mild systemic disease. After reviewing the risks and benefits, the patient was deemed in satisfactory condition to undergo the procedure. The anesthesia plan was to use monitored anesthesia care (MAC). Immediately prior to administration of medications, the patient was re-assessed for adequacy to receive sedatives. The heart rate, respiratory rate, oxygen saturations, blood pressure, adequacy of pulmonary ventilation, and response to care were monitored throughout the procedure. The physical status of the patient was re-assessed after the procedure. After I obtained informed consent, the scope was passed under direct vision. Throughout the procedure, the patient's blood pressure, pulse, and oxygen saturations were monitored continuously. The Colonoscope was introduced through the anus and advanced to the cecum, identified by appendiceal orifice and ileocecal valve. The colonoscopy was performed without difficulty. The patient tolerated the procedure well. The quality of the bowel preparation was adequate. The terminal ileum, ileocecal valve, appendiceal orifice, and rectum were photographed. Scope In: 10:14:19 AM Scope Withdrawal Time 0 hours 9 minutes 43 seconds Scope Out: 10:26:38 AM Total Procedure Duration Time 0 hours 12 minutes 19 seconds Findings: The perianal and digital rectal examinations were normal. Multiple small and large-mouthed diverticula were found in the recto-sigmoid colon, sigmoid colon and descending colon. The exam was otherwise without abnormality on direct and retroflexion views. Impression: - Diverticulosis in the recto-sigmoid colon, in the sigmoid colon and in the descending colon. - The examination was otherwise normal on direct and retroflexion views. - No specimens collected. Recommendation: - Discharge patient to home. - Resume previous diet. - Continue present medications. - Await pathology results. - Repeat colonoscopy in 5 years for surveillance. Procedure Code(s): --- Professional --- G0121, Colorectal cancer screening; colonoscopy on individual not meeting criteria for high risk CPT copyright 2021 [employer]. All rights reserved. The codes documented in this report are preliminary and upon record center coordinator review may be revised to meet current compliance requirements. Goldy Raya DO 08/12/2023 10:30:47 AM This report has been signed electronically. Number of Addenda: 0 Note Initiated On: 08/12/2023 10:04 AM
--- NOTE | 2023-08-12 10:31 | OP.CCLET_ITS ---
08/12/2023 Noel Yates [address] [place] [address] Re : Colonoscopy procedure for Chapo Hernández Dear Dr. Yates This procedure was performed on Saturday, August 12, 2023. My impressions and recommendations are as follows: Impressions : - Diverticulosis in the recto-sigmoid colon, in the sigmoid colon and in the descending colon. - The examination was otherwise normal on direct and retroflexion views. - No specimens collected. Recommendations : - Discharge patient to home. - Resume previous diet. - Continue present medications. - Await pathology results. - Repeat colonoscopy in 5 years for surveillance. My findings are described in the full procedure note, which is enclosed. If I can be of further assistance, please feel free to contact me at . Sincerely, Goldy Raya, 08/12/2023 10:30:47 AM This report has been signed electronically.
[2023-08-12 10:32] VITALS: BP 139/82; BP 95/43; PULSE 73; RESP 18; TEMP 36.7; O2SAT 94
[2023-08-12 10:34] VITALS: BP 139/82; BP 94/49; PULSE 73; RESP 12; O2SAT 93
[2023-08-12 10:40] VITALS: BP 101/50; BP 139/82; PULSE 74; RESP 18; O2SAT 95
[2023-08-12 10:44] VITALS: BP 119/62; BP 139/82; PULSE 72; RESP 12; TEMP 37.6; O2SAT 97
[2023-08-12 11:00] VITALS: BP 139/82
== END 2023-08-12 11:25 | disposition home or self-care (01) ==
LOC: EN 08:56 → AC 08:57
PROVIDERS: Visit Provider Internal Medicine Gastroenterology
PROC: 0DJD8ZZ Inspection of Lower Intestinal Tract, Via Natural or Artificial Opening Endoscopic (ICD-10-PCS; CPT 45378; principal; 2023-08-12 09:55)
DX: Z12.11 Encounter for screening for malignant neoplasm of colon (principal); E11.9 Type 2 diabetes mellitus without complications; Z79.4 Long term (current) use of insulin; K57.30 Diverticulosis of large intestine without perforation or abscess without bleeding; E78.00 Pure hypercholesterolemia, unspecified; I10 Essential (primary) hypertension; Z79.82 Long term (current) use of aspirin; I25.10 Atherosclerotic heart disease of native coronary artery without angina pectoris; Z86.010 Personal history of colon polyps; Z79.899 Other long term (current) drug therapy; Z79.84 Long term (current) use of oral hypoglycemic drugs; Z79.85 Long-term (current) use of injectable non-insulin antidiabetic drugs; Z95.5 Presence of coronary angioplasty implant and graft; Z95.1 Presence of aortocoronary bypass graft; Z96.659 Presence of unspecified artificial knee joint
CPT/HCPCS: 45378; 82962; J7120; J2405

== ENCOUNTER → 2023-09-04 | Outpatient (CLI) | payer BC, SELFPAY ==
[2023-06-03 08:43] VITALS: BMI 44.4
[2023-09-04 17:38] LABS: Absolute Lymphocyte Count 1.38 X10^3/uL (0.83-4.51); Absolute Neutrophil Count 6.6 X10^3/uL (2.0-7.7); Basophil# 0.05 X10^3/uL; Basophil% 0.6 % (0-1); Eosinophil# 0.08 X10^3/uL; Eosinophils% 0.9 % (0-5); Hematocrit 45.2 % (40-54); Hemoglobin 14.2 g/dL (13.0-16.5); Lymphocyte # 1.38 X10^3/ul (0.83-4.51); Lymphocyte % 15.7 % (19-41); Mean Corp Hgb Conc 31.4 g/dL (32-36); Mean Corpuscular Hgb 28.1 pg (27.0-32.0); Mean Corpuscular Volume 89.5 fL (80-94); Mean Platelet Vol. 10.4 fl (6.2-12.0); Monocyte# 0.68 X10^3/uL; Monocyte% 7.7 % (0-10); NRBC Flagged by Analyzer 0 % (0-5); Neutrophil # 6.57 X10^3/uL (2.7-7.7); Neutrophil % 74.8 % (47-70); Platelet Count 236 K/mm3 (150-450); RBC Distribution Width SD 54.6 fl (35.1-43.9); Red Blood Count 5.05 M/mm3 (4.6-6.2); White Blood Count 8.8 K/mm3 (4.4-11.0)
[2023-09-04 18:23] LABS: Vitamin D,25 Hydroxy 66.6 ng/mL
[2023-09-04 18:28] LABS: ALB/GLOB Ratio 0.6 RATIO (0.9-2.4); AST(SGOT) 12 U/L (15-37); Alanine Aminotransfer ALT/SGPT 23 U/L (16-61); Albumin, Serum 3.1 g/dL (3.2-5.0); Alkaline Phosphatase 66 U/L (45-117); Anion Gap 4 (5-15); BUN 17 mg/dL (7-18); BUN/Creat Ratio 20.6 RATIO (10-20); Chloride 104 mmol/L (98-107); Cholesterol 139 mg/dL (200); Creatinine, Serum 0.82 mg/dL (0.70-1.30); EST Glomerular Filtration Rate 101 mL/min (>60); Est Glom Filt Rate - Afr Amer 122 mL/min (>60); Globulin 5.2 g/dL (2.2-4.2); Glucose 74 mg/dL (74-106); High Density Lipoprotein 49 mg/dL; Magnesium 2.5 mg/dL (1.6-2.6); Potassium 3.9 mmol/L (3.5-5.1); Protein, Total 8.3 g/dL (6.4-8.2); Sodium Level 139 mmol/L (136-145)
[2023-09-05 09:10] LABS: Hemoglobin A1c 6.4 % (3.8-5.6)
== END | disposition home or self-care (01) ==
PROVIDERS: Visit Provider Family Medicine
DX: I25.10 Atherosclerotic heart disease of native coronary artery without angina pectoris (principal); E10.9 Type 1 diabetes mellitus without complications; E87.5 Hyperkalemia
CPT/HCPCS: 36415; 80053; 82043; 82306; 82465; 82570; 83036; 83718; 83735; 85025

== ENCOUNTER → 2024-03-02 | Outpatient (CLI) | payer BC, SELFPAY ==
[2023-06-03 08:43] VITALS: BMI 44.4
== END | disposition home or self-care (01) ==
LOC: PSN 09:51
PROVIDERS: PCP Family Medicine; Referring Provider Internal Medicine Critical Care Medicine; Visit Provider Internal Medicine Critical Care Medicine
DX: R91.8 Other nonspecific abnormal finding of lung field (principal)
CPT/HCPCS: 94060; 94726; 94729

== ENCOUNTER → 2024-07-14 | Outpatient (CLI) | payer BC, SELFPAY ==
[2023-06-03 08:43] VITALS: BMI 44.4
[2024-07-14 10:20] LABS: Absolute Neutrophil Count 4.9 X10^3/uL (2.0-7.7); Basophil# 0.05 X10^3/uL; Basophil% 0.7 % (0-1); Eosinophil# 0.09 X10^3/uL; Eosinophils% 1.3 % (0-5); Hemoglobin 14.7 g/dL (13.0-16.5); Lymphocyte % 16.3 % (19-41); Mean Corp Hgb Conc 33.4 g/dL (32-36); Mean Corpuscular Hgb 31.9 pg (27.0-32.0); Mean Corpuscular Volume 95.4 fL (80-94); Mean Platelet Vol. 10.7 fl (6.2-12.0); Monocyte# 0.59 X10^3/uL; Monocyte% 8.7 % (0-10); NRBC Flagged by Analyzer 0 % (0-5); Neutrophil % 72.6 % (47-70); Platelet Count 224 K/mm3 (150-450); RBC Distribution Width CV 13.4 % (11.6-14.6); RBC Distribution Width SD 46.8 fl (35.1-43.9); Red Blood Count 4.61 M/mm3 (4.6-6.2); White Blood Count 6.8 K/mm3 (4.4-11.0)
[2024-07-14 11:10] LABS: ALB/GLOB Ratio 0.6 RATIO (0.9-2.4); AST(SGOT) 10 U/L (15-37); Alanine Aminotransfer ALT/SGPT 20 U/L (16-61); Albumin, Serum 3.3 g/dL (3.2-5.0); Alkaline Phosphatase 60 U/L (45-117); Anion Gap 6 (5-15); BUN 25 mg/dL (7-18); BUN/Creat Ratio 30.4 RATIO (10-20); Calcium,Total 9.7 mg/dL (8.5-10.1); Chloride 108 mmol/L (98-107); Creatinine, Serum 0.82 mg/dL (0.70-1.30); EST Glomerular Filtration Rate 101 mL/min (>60); Est Glom Filt Rate - Afr Amer 122 mL/min (>60); Globulin 5.2 g/dL (2.2-4.2); Glucose 113 mg/dL (74-106); Potassium 3.8 mmol/L (3.5-5.1); Protein, Total 8.5 g/dL (6.4-8.2); Sodium Level 140 mmol/L (136-145)
== END | disposition home or self-care (01) ==
LOC: MFPLAB 08:38
PROVIDERS: PCP Family Medicine; Visit Provider Family Medicine
DX: E10.9 Type 1 diabetes mellitus without complications (principal); E66.01 Morbid (severe) obesity due to excess calories; Z68.41 Body mass index [BMI] 40.0-44.9, adult
CPT/HCPCS: 36415; 80053; 85025

== ENCOUNTER → 2024-09-06 | Outpatient (CLI) | payer BC, SELFPAY ==
[2023-06-03 08:43] VITALS: BMI 44.4
--- NOTE | 2024-09-06 09:06 | ECHOCS_ITS ---
Reason For Study: CAD/ASHD Left Ventricle Normal LV size. Mild concentric left ventricular hypertrophy. Left ventricular systolic function is normal. The left ventricular ejection fraction is 55 %. Stage 1 diastolic dysfunction. No regional wall motion abnormalities noted. Right Ventricle Normal RV size. Normal systolic function. Atria Normal left atrium. Normal right atrium. Mitral Valve Normal mitral valve. Tricuspid Valve Normal tricuspid valve. Great Vessels Normal aortic root. The pulmonary artery is normal size. Inferior vena cava collapse with respiration. Pericardium/Pleural No pericardial effusion. MMode/2D Measurements & Calculations LVIDd: 4.9 cm IVSd: 1.4 cm Ao root diam: 3.2 cm LVIDs: 4.1 cm LVPWd: 1.2 cm RVDd: 4.6 cm FS: 16.4 % LAV(MOD-bp): 67.0 ml LVAd ap4: 44.2 cm2 LVAd ap2: 40.1 cm2 LAV(MOD-bp) Indexed: 25.7 ml/m2 LVLd ap4: 8.6 cm LVLd ap2: 9.0 cm LAV(MOD-sp2): 53.5 ml EDV(MOD-sp4): 185.5 ml EDV(MOD-sp2): 144.2 ml LAV(MOD-sp4): 84.1 ml EDV(sp4-el): 193.1 ml EDV(sp2-el): 152.0 ml LVAs ap4: 28.0 cm2 LVAs ap2: 24.7 cm2 LVLs ap4: 8.0 cm LVLs ap2: 7.9 cm ESV(MOD-sp4): 80.0 ml ESV(MOD-sp2): 62.8 ml ESV(sp4-el): 83.8 ml ESV(sp2-el): 65.1 ml EF(MOD-sp4): 56.9 % EF(MOD-sp2): 56.5 % EF(sp4-el): 56.6 % SV(MOD-sp4): 105.5 ml SV(MOD-sp2): 81.4 ml SV(sp4-el): 109.3 ml SI(MOD-sp4): 40.4 ml/m2 SI(MOD-sp2): 31.2 ml/m2 LA dimension(2D): 5.4 cm LA A4 area: 24.7 cm2 RA A4 area: 22.4 cm2 TAPSE: 1.1 cm Time Measurements MV dec time: 0.19 sec Doppler Measurements & Calculations MV E max yoni: 67.0 cm/sec Lat Peak E' Yoni: 15.8 cm/sec Med Peak E' Yoni: 7.8 cm/sec MV A max yoni: 76.2 cm/sec E/E' lat: 4.2 E/E' med: 8.6 MV E/A: 0.88 MV V2 max: 100.0 cm/sec MV P1/2t max yoni: 80.1 cm/sec Ao V2 max: 121.1 cm/sec MV max P.0 mmHg MV P1/2t: 70.1 msec Ao max P.9 mmHg MV V2 mean: 55.1 cm/sec MV dec slope: 334.7 cm/sec2 Ao V2 mean: 87.2 cm/sec MV mean P.4 mmHg Ao mean P.4 mmHg MV V2 VTI: 25.7 cm MVA(P1/2t): 3.1 cm2 Ao V2 VTI: 28.5 cm AV (velocity ratio): 0.78 LV V1 max: 94.9 cm/sec PA V2 max: 98.8 cm/sec LV V1 max P.6 mmHg LV V1 mean P.9 mmHg LV V1 mean: 65.0 cm/sec LV V1 VTI: 22.2 cm ECHO/Echo Complete W/ Contrast Interpretation Summary Normal LV size. Left ventricular systolic function is normal. The left ventricular ejection fraction is 55 %. Mild concentric left ventricular hypertrophy. Stage 1 diastolic dysfunction. Contrast injection was performed. Ordering Physician: Thad Middleton Referring Physician: Thad Middleton Performed By: Francisco Pena RCS
== END | disposition home or self-care (01) ==
LOC: CVS 09:04
PROVIDERS: PCP Family Medicine; Referring Provider Nurse Practitioner Family; Visit Provider Nurse Practitioner Family
DX: Z95.1 Presence of aortocoronary bypass graft (principal); Z86.79 Personal history of other diseases of the circulatory system; I51.7 Cardiomegaly
CPT/HCPCS: 93306; Q9957; A4216; C8929

== ENCOUNTER → 2024-12-05 | Outpatient (CLI) | payer OTHER, SELFPAY ==
[2023-06-03 08:43] VITALS: BMI 44.4
[2024-12-05 11:15] LABS: Absolute Lymphocyte Count 1.26 X10^3/uL (0.83-4.51); Basophil# 0.07 X10^3/uL; Eosinophil# 0.16 X10^3/uL; Eosinophils% 2.3 % (0-5); Hematocrit 46.7 % (40-54); Hemoglobin 15.2 g/dL (13.0-16.5); Lymphocyte # 1.26 X10^3/ul (0.83-4.51); Lymphocyte % 17.7 % (19-41); Mean Corp Hgb Conc 32.5 g/dL (32-36); Mean Corpuscular Hgb 31.3 pg (27.0-32.0); Mean Corpuscular Volume 96.1 fL (80-94); Mean Platelet Vol. 10.8 fl (6.2-12.0); Monocyte# 0.64 X10^3/uL; NRBC Flagged by Analyzer 0 % (0-5); Neutrophil # 4.95 X10^3/uL (2.7-7.7); Neutrophil % 69.7 % (47-70); Platelet Count 212 K/mm3 (150-450); RBC Distribution Width CV 13.9 % (11.6-14.6); RBC Distribution Width SD 48.9 fl (35.1-43.9); Red Blood Count 4.86 M/mm3 (4.6-6.2); White Blood Count 7.1 K/mm3 (4.4-11.0)
[2024-12-05 11:36] LABS: Microalbumin,Random Urine 39.2 mg/L (NO RANGE EST.); Microalbumin:Creatinine Ratio 612.5 mg/g CRE
[2024-12-05 13:19] LABS: ALB/GLOB Ratio 0.9 RATIO (0.9-2.4); AST(SGOT) 18 U/L (<=37); Alanine Aminotransfer ALT/SGPT 23 U/L (<=46); Albumin, Serum 3.9 g/dL (3.4-4.8); Alkaline Phosphatase 60 U/L (40-129); Anion Gap 11 (5-15); Calcium,Total 9.7 mg/dL (7.6-11.0); Carbon Dioxide 26.5 mmol/L (21.0-32.0); Chloride 103 mmol/L (98-108); Creatinine, Serum 0.86 mg/dL (0.70-1.20); EST Glomerular Filtration Rate 97 (>60); Globulin 4.2 g/dL (2.2-4.2); Glucose 127 mg/dL (70-99); Potassium 4.5 mmol/L (3.3-5.1); Protein, Total 8.1 g/dL (5.9-8.4); Sodium Level 141 mmol/L (133-145); Total Bilirubin 0.59 mg/dL (0.00-1.30)
[2024-12-05 13:39] LABS: BUN 23 mg/dL (4-19); BUN/Creat Ratio 26.8 RATIO (10-20)
== END | disposition home or self-care (01) ==
LOC: MFPLAB 08:58
PROVIDERS: PCP Family Medicine; Visit Provider Family Medicine
DX: E66.813 Obesity, class 3 (principal); E66.01 Morbid (severe) obesity due to excess calories; E10.9 Type 1 diabetes mellitus without complications
CPT/HCPCS: 36415; 80053; 82043; 82570; 84443; 85025

== ENCOUNTER → 2025-05-04 | Outpatient (CLI) | payer OTHER, SELFPAY ==
[2023-06-03 08:43] VITALS: BMI 44.4
[2025-05-04 10:40] LABS: Creatinine, Urine (random) 101.00 mg/dL (39.00-259.00); Microalbumin,Random Urine 55.5 mg/L (<20 mg/L)
[2025-05-04 10:43] LABS: AST(SGOT) 17 U/L (<=37); Alanine Aminotransfer ALT/SGPT 19 U/L (<=46); Albumin, Serum 3.8 g/dL (3.4-4.8); Alkaline Phosphatase 50 U/L (40-129); Anion Gap 10 (5-15); BUN 16 mg/dL (4-19); BUN/Creat Ratio 16.8 RATIO (10-20); Calcium,Total 9.1 mg/dL (7.6-11.0); Carbon Dioxide 25.7 mmol/L (21.0-32.0); Chloride 107 mmol/L (98-108); Globulin 3.8 g/dL (2.2-4.2); Glucose 100 mg/dL (70-99); Potassium 4.4 mmol/L (3.3-5.1)
== END | disposition home or self-care (01) ==
LOC: MFPLAB 08:40
PROVIDERS: PCP Family Medicine; Referring Provider Family Medicine; Visit Provider Family Medicine
DX: E11.40 Type 2 diabetes mellitus with diabetic neuropathy, unspecified (principal)
CPT/HCPCS: 36415; 80053; 82043; 82570; 83036